=== PATIENT | male | born 1945 | race Hispanic/Latino ===

== ENCOUNTER 2017-10-13 14:52 | Emergency (ER) | payer MEDICARE ==
[~2017-10-13 14:52] MED LIST: ADRENALIN ONE; SODIUM BICARBONATE IV ONE
--- NOTE | 2017-10-13 15:30 | Emergency Department Report ---
ED CPR HPI - General Chief Complaint: Cardiac Arrest/CPR Stated Complaint: CARDIAC ARREST Time Seen by Provider: 10/13/17 15:23 Source: EMS Mode of arrival: Stretcher Limitations: Other - History of Present Illness Initial Comments: Patient is 72 years old male with history of CABG, diabetes and hypertension. Patient brought into the ER in a cardiac arrest and CPR in progress. Initial call came to EMS at 14:20. Patient complained to his about severe back pain and then he fell and became unresponsive. When EMS arrived at the scene patient was in agonal breathing, patient was immediately intubated by EMS, and ACLS protocol was followed by EMS and continued in the ER. Initial rhythm was PEA. Upon arrival to the ER intubation was confirmed by me by breath sounds on both sides and capnometry. Patient remained in PEA except for one episode of ventricular fibrillation for which he received a shock and return back to PEA. Patient pronounced at 15:10. For further information please refer to the code sheet. Family informed. Complaint: stopped breathing, collapsed during rest -: hour(s) Place: home Bystander CPR Performed: No Shock Advised: No Initial Findings in the Field: no pulse, PEA ROSC in the Field: No Associated Injuries: No Associated Symptoms: back pain - Related Data Home Medications Medication Instructions Recorded Confirmed Last Taken Aspirin [Aspirin TAB] 325 mg PO QDAY 07/01/13 07/01/13 Unknown Carvedilol [Coreg] 25 mg PO BID 07/01/13 07/01/13 07/01/13 Hydrochlorothiazide [HCTZ] 25 mg PO QDAY 07/01/13 07/01/13 07/01/13 Lisinopril [Zestril TAB] 20 mg PO BID 07/01/13 07/01/13 07/01/13 PARoxetine [Paxil] 20 mg PO DAILY 07/01/13 07/01/13 06/30/13 Simvastatin [Zocor TAB] 40 mg PO QDAY 07/01/13 07/01/13 07/01/13 metFORMIN [Glucophage] 500 mg PO BID 07/01/13 07/01/13 07/01/13 traZODone [Desyrel] 50 mg PO QHS 07/01/13 07/01/13 06/30/13 Previous Rx's Medication Instructions Recorded Last Taken Type Hydrocodone Bit/Acetaminophen 1 each PO Q6H #40 tablet 07/02/13 Unknown Rx [Lortab 7.5-500 Tablet] Allergies Allergy/AdvReac Type Severity Reaction Status Date / Time No Known Allergies Allergy Unverified 07/01/13 18:39 ED Review of Systems ROS: Stated complaint: CARDIAC ARREST Other details as noted in HPI Comment: Unobtainable due to pts medical conditions ED Past Medical Hx - Past Medical History Hx Hypertension: Yes Hx Diabetes: Yes Additional medical history: HIGH CHOLESTEROL - Surgical History Hx Open Heart Surgery: Yes (4 VESSEL) - Social History Smoking Status: Current Every Day Smoker Substance Use Type: None - Medications Home Medications: Home Medications Medication Instructions Recorded Confirmed Last Taken Type Aspirin [Aspirin TAB] 325 mg PO QDAY 07/01/13 07/01/13 Unknown History Carvedilol [Coreg] 25 mg PO BID 07/01/13 07/01/13 07/01/13 History Hydrochlorothiazide [HCTZ] 25 mg PO QDAY 07/01/13 07/01/13 07/01/13 History Lisinopril [Zestril TAB] 20 mg PO BID 07/01/13 07/01/13 07/01/13 History PARoxetine [Paxil] 20 mg PO DAILY 07/01/13 07/01/13 06/30/13 History Simvastatin [Zocor TAB] 40 mg PO QDAY 07/01/13 07/01/13 07/01/13 History metFORMIN [Glucophage] 500 mg PO BID 07/01/13 07/01/13 07/01/13 History traZODone [Desyrel] 50 mg PO QHS 07/01/13 07/01/13 06/30/13 History Hydrocodone Bit/Acetaminophen 1 each PO Q6H #40 tablet 07/02/13 Unknown Rx [Lortab 7.5-500 Tablet] ED Physical Exam - General Limitations: Other General appearance: other (intubated CPR in progress) - Head Head exam: Present: atraumatic, normocephalic, normal inspection - Eye Eye exam: Present: normal appearance Pupils: Present: other (pupils are fixed and dilated.) - ENT ENT exam: Present: normal exam - Neck Neck exam: Present: normal inspection - Respiratory Respiratory exam: Present: other (intubated, no spontaneous breathing.) - GI/Abdominal GI/Abdominal exam: Present: soft - Extremities Exam Extremities exam: Present: normal inspection - Back Exam Back exam: Present: normal inspection - Skin Skin exam: Present: warm, intact Critical Care Time: Yes Critical care time in (mins) excluding proc time.: 30 Critical care attestation.: If time is entered above; I have spent that time in minutes in the direct care of this critically ill patient, excluding procedure time. ED Disposition Clinical Impression: Cardiopulmonary arrest Disposition: DC-20 Is pt being admited?: No Condition: Stable Referrals: PRIMARY CARE, [Primary Care Provider] - 3-5 Days
== END 2017-10-13 18:30 ==
LOC: ED 14:52
DX: I46.9 Cardiac arrest, cause unspecified (principal); Z79.82 Long term (current) use of aspirin; F17.200 Nicotine dependence, unspecified, uncomplicated; I10 Essential (primary) hypertension; E11.9 Type 2 diabetes mellitus without complications; E78.00 Pure hypercholesterolemia, unspecified; Z95.1 Presence of aortocoronary bypass graft
CPT/HCPCS: 82962; 92950; 99291; J0171